=== PATIENT | male | born 1990 | race Caucasian/White ===

== ENCOUNTER → 2016-08-22 | Outpatient (REF) | payer OTHER | LOC: M SMT 08:30 | PROVIDERS: ATTEND Urology | DX: Z30.2 Encounter for sterilization (principal) ==

== ENCOUNTER → 2016-09-13 | Outpatient (REF) | payer OTHER ==
[2016-09-13 16:15] LABS: MEAN CORPUSCULAR HEMOGLOBIN 30.3 pg (27.0-33.0); MEAN CORPUSCULAR HGB CONC 34.1 g/dl (32.0-36.5); RED CELL DISTRIBUTION WIDTH 12.5 % (11.5-14.5); WHITE BLOOD COUNT 6.6 K/mm3 (4.0-10.0)
[2016-09-13 16:51] LABS: ANION GAP 8 MEQ/L (8-16); BLOOD UREA NITROGEN 11 MG/DL (7-18); CALCIUM LEVEL 9.5 MG/DL (8.5-10.1); CARBON DIOXIDE LEVEL 29 MEQ/L (21-32); CHLORIDE LEVEL 105 MEQ/L (98-107); GLOMERULAR FILTRATION RATE > 60.0 (>60); GLUCOSE, FASTING 89 MG/DL (70-105); POTASSIUM SERUM 3.9 MEQ/L (3.5-5.1); SODIUM LEVEL 142 MEQ/L (136-145)
== END ==
LOC: M LABDRAW1 15:25
PROVIDERS: ATTEND Family Medicine
DX: F32.0 Major depressive disorder, single episode, mild (principal); F39 Unspecified mood [affective] disorder

== ENCOUNTER → 2016-09-21 | Outpatient (REF) | payer OTHER ==
[2016-09-21 13:49] LABS: IMMOTILE SPERM ABSENT (ABSENT); MOTILE SPERM ABSENT (ABSENT)
[2016-09-21 13:50] LABS: IMMMOTILE SPERM CENTRIFUGED PRESENT (ABSENT); MOTILE SPERM CENTRIFUGED ABSENT (ABSENT)
[2016-09-21 13:52] LABS: SPERM ABNORMAL FORMS WBC'S NOTED
== END ==
LOC: M SMT 13:31
PROVIDERS: ATTEND Urology
DX: Z30.8 Encounter for other contraceptive management (principal)

== ENCOUNTER → 2016-11-30 | Outpatient (CLI) | payer OTHER ==
--- NOTE | 2016-11-30 12:29 | REP ---
MRI CERVICAL SPINE WITHOUT CONTRAST: 11/30/2016. Comparison: 04/20/2011. Clinical history: Neck pain. Technique: Sagittal T1, T2 and STIR images with axial T1-T2 sequences provided. Findings. The sagittal images show the normal lordosis maintained. Vertebral body heights and marrow signal from the dens to the upper thoracic levels to the mid body of T4 were unremarkable. The vertebral body heights and disc space heights as well as the disc water signal were normal. No prevertebral swelling or malalignment. Cervical cord shows no intrinsic signal abnormality, syrinx, atrophy or mass. Craniocervical junction shows ample subarachnoid space but no cerebellar tonsillar ectopia.. At C2-C3, there is no disc bulge or herniation and no spinal or foraminal stenosis. At C3-4, there is minimal disc bulge not causing any spinal or foraminal stenosis. At C4-5 and C5-6, there is also trace disc bulge without spinal or foraminal stenosis. At C6-7 and C7-T1, there is no disc bulge or herniation and no spinal or foraminal stenosis. Impression: 1. Minimal disc bulges at C3-4 through C5-6 without spinal or foraminal stenosis. These findings are minimal but were not present on the previous study. No spinal stenosis, central canal stenosis, acute disc space abnormality, compression deformity, intrinsic signal abnormality in the cervical cord nor other acute finding. Signed by Danish Catherine MD 11/30/2016 12:31 P
--- NOTE | 2016-11-30 12:59 | REP ---
MRI left shoulder without contrast: History: Pain. Attention to scapula. Pain under shoulder. Comparison MRI is from March 02, 2012. Technique: Axial, coronal and sagittal imaging planes were utilized through the shoulder, scapula and posterolateral chest wall. No infrascapular or scapulothoracic mass lesion or cyst is seen. Cortical and medullary bone signal intensity is normal in the scapula. Medial and lateral scapular borders are intact. There is no evidence of glenohumeral or acromioclavicular joint effusion. Glenohumeral and acromioclavicular joints are normally aligned. No axillary mass or adenopathy is seen. Skeletal muscle signal intensity in the periarticular and chest wall musculature is unremarkable. No rib abnormality is appreciated. Impression: Negative left shoulder and scapular MRI study. Signed by Long Fuentes MD 11/30/2016 01:31 P
== END ==
LOC: M RAD 10:12
PROVIDERS: ATTEND Physical Medicine & Rehabilitation
DX: M65.812 Other synovitis and tenosynovitis, left shoulder (principal); M50.20 Other cervical disc displacement, unspecified cervical region

== ENCOUNTER → 2019-06-18 | Outpatient (REF) | payer OTHER | LOC: M LAB REF 17:21 | PROVIDERS: ATTEND Physician Assistant | DX: J02.9 Acute pharyngitis, unspecified (principal) ==

== ENCOUNTER → 2020-12-22 | Outpatient (CLI) | payer OTHER ==
[2020-12-22 15:02] LABS: BASO % 0.3 % (0.0-1.0); EOS # 0.1 10^3/uL (0.0-0.5); EOS % 2.1 % (0.0-3.0); HEMATOCRIT 45.9 % (42.0-52.0); HEMOGLOBIN 14.7 g/dl (13.5-17.5); LYMPH # 1.4 10^3/uL (1.5-5.0); LYMPH % 22.4 % (24.0-44.0); MEAN CORPUSCULAR HEMOGLOBIN 29.9 pg (27.0-33.0); MEAN CORPUSCULAR VOLUME 93.3 fl (80.0-96.0); MONO # 0.5 10^3/uL (0.0-0.8); MONO % 7.6 % (2.0-8.0); NEUTROPHILS # 4.1 10^3/uL (1.5-8.5); NEUTROPHILS % 67.3 % (36.0-66.0); PLATELET COUNT, AUTOMATED 335 10^3/uL (150-450); RED BLOOD COUNT 4.92 10^6/uL (4.30-6.10); WHITE BLOOD COUNT 6.1 10^3/uL (4.0-10.0)
[2020-12-22 15:41] LABS: ERYTHROCYTE SEDIMENTATION RATE 4 mm/hr (0-15)
[2020-12-22 15:42] LABS: ALT/SGPT 36 U/L (12-78); BILIRUBIN,TOTAL 0.3 MG/DL (0.2-1.0); BLOOD UREA NITROGEN 8 MG/DL (7-18); CALCIUM LEVEL 9.2 MG/DL (8.5-10.1); CARBON DIOXIDE LEVEL 28 MEQ/L (21-32); CHLORIDE LEVEL 106 MEQ/L (98-107); CORTISOL BASELINE 8.2 UG/DL (4.3-22.4); FREE T4 0.76 NG/DL (0.76-1.46); GLOMERULAR FILTRATION RATE > 60.0 (>60); GLUCOSE, FASTING 83 MG/DL (70-100); POTASSIUM SERUM 4.1 MEQ/L (3.5-5.1); SODIUM LEVEL 140 MEQ/L (136-145); THYROID STIMULATING HORMONE 0.454 uIU/ML (0.358-3.740); TOTAL PROTEIN 7.3 GM/DL (6.4-8.2)
[2020-12-22 15:59] LABS: HEMOGLOBIN A1c 5.3 %
[2020-12-23 16:08] LABS: TESTOSTERONE FREE (DIRECT) 12.5 pg/mL (8.7-25.1)
== END ==
LOC: M WUC 10:32
PROVIDERS: ATTEND Clinical Nurse Specialist Family Health
DX: S06.0X0A Concussion without loss of consciousness, initial encounter (principal); R53.83 Other fatigue; G44.321 Chronic post-traumatic headache, intractable

== ENCOUNTER → 2023-12-20 | Outpatient (CLI) | payer OTHER ==
[2023-12-20 11:19] LABS: BASO % 0.2 % (0.0-1.0); EOS # 0.1 10^3/uL (0.0-0.5); HEMATOCRIT 46.5 % (42.0-52.0); HEMOGLOBIN 15.4 g/dl (13.5-17.5); LYMPH # 1.6 10^3/uL (1.5-5.0); LYMPH % 26.4 % (24.0-44.0); MEAN CORPUSCULAR HEMOGLOBIN 30.3 pg (27.0-33.0); MEAN CORPUSCULAR HGB CONC 33.1 g/dl (32.0-36.5); MEAN CORPUSCULAR VOLUME 91.5 fl (80.0-96.0); MONO # 0.5 10^3/uL (0.0-0.8); MONO % 7.8 % (2.0-8.0); NEUTROPHILS % 64.4 % (36.0-66.0); PLATELET COUNT, AUTOMATED 305 10^3/uL (150-450); RED BLOOD COUNT 5.08 10^6/uL (4.30-6.10); WHITE BLOOD COUNT 6.1 10^3/uL (4.0-10.0)
[2023-12-20 11:39] LABS: HEMOGLOBIN A1c 5.3 % (4.0-6.0)
[2023-12-20 11:52] LABS: ALKALINE PHOSPHATASE 62 U/L (46-116); ALT/SGPT 17 U/L (7.0-40); AST/SGOT 11 U/L (<34); BILIRUBIN,TOTAL 0.5 MG/DL (0.3-1.2); BLOOD UREA NITROGEN 12 MG/DL (9-23); CALCIUM LEVEL 9.8 MG/DL (8.5-10.1); CARBON DIOXIDE LEVEL 30 MMOL/L (20-31); CHLORIDE LEVEL 106 MMOL/L (98-107); CHOLESTEROL LEVEL 207 MG/DL (<200); CHOLESTEROL RISK RATIO 5.59 (<5); CREATININE FOR GFR 0.93 MG/DL (0.70-1.30); GLOMERULAR FILTRATION RATE > 60.0 (>60); GLUCOSE, FASTING 87 MG/DL (60-100); LDL CHOLESTEROL 147.6 MG/DL (<100); POTASSIUM SERUM 4.4 MMOL/L (3.5-5.1); SODIUM LEVEL 141 MMOL/L (136-145); TOTAL PROTEIN 6.9 G/DL (5.7-8.2); TRIGLYCERIDES LEVEL 112 MG/DL (<150)
[2023-12-20 11:53] LABS: THYROID STIMULATING HORMONE 0.785 uIU/ML (0.55-4.78)
[2023-12-20 11:54] LABS: FREE T4 0.97 NG/DL (0.89-1.76)
== END ==
LOC: M LAB 09:54
PROVIDERS: ATTEND Physician Assistant
DX: Z13.29 Encounter for screening for other suspected endocrine disorder (principal)

== ENCOUNTER 2024-01-15 17:51 | Emergency (ER) | payer OTHER ==
[~2024-01-15] VITALS: Ht 172.7 cm; Wt 74.7 kg
[2024-01-15 19:59] VITALS: BP 118/82; TEMP 96.7; O2SAT 99
[2024-01-15] MEDS: IBUPROFEN 800 MG TAB PO ONE (20:02)
== END 2024-01-15 20:07 | disposition home or self-care (01) ==
LOC: M ED 17:51
DX: S16.1XXA Strain of muscle, fascia and tendon at neck level, initial encounter (principal); V43.52XA Car driver injured in collision with other type car in traffic accident, initial encounter; Y92.410 Unspecified street and highway as the place of occurrence of the external cause; Y93.9 Activity, unspecified; Y99.9 Unspecified external cause status; Z87.820 Personal history of traumatic brain injury

== ENCOUNTER → 2024-02-26 | Outpatient (CLI) | payer OTHER ==
[2024-02-26 11:55] LABS: BASO % 0.3 % (0.0-1.0); EOS # 0.1 10^3/uL (0.0-0.5); EOS % 1.5 % (0.0-3.0); HEMATOCRIT 45.1 % (42.0-52.0); LYMPH # 1.4 10^3/uL (1.5-5.0); LYMPH % 19.3 % (24.0-44.0); MEAN CORPUSCULAR HEMOGLOBIN 29.9 pg (27.0-33.0); MEAN CORPUSCULAR HGB CONC 33.3 g/dl (32.0-36.5); MEAN CORPUSCULAR VOLUME 89.8 fl (80.0-96.0); MONO # 0.4 10^3/uL (0.0-0.8); NEUTROPHILS # 5.5 10^3/uL (1.5-8.5); NEUTROPHILS % 73.6 % (36.0-66.0); PLATELET COUNT, AUTOMATED 302 10^3/uL (150-450); RED BLOOD COUNT 5.02 10^6/uL (4.30-6.10); WHITE BLOOD COUNT 7.5 10^3/uL (4.0-10.0)
[2024-02-26 12:38] LABS: ALKALINE PHOSPHATASE 63 U/L (46-116); ALT/SGPT 15 U/L (7.0-40); AST/SGOT 9 U/L (<34); BILIRUBIN,TOTAL 0.5 MG/DL (0.3-1.2); BLOOD UREA NITROGEN 11 MG/DL (9-23); CALCIUM LEVEL 9.6 MG/DL (8.5-10.1); CARBON DIOXIDE LEVEL 30 MMOL/L (20-31); CHLORIDE LEVEL 107 MMOL/L (98-107); CHOLESTEROL LEVEL 175 MG/DL (<200); CHOLESTEROL RISK RATIO 5.08 (<5); CREATININE FOR GFR 0.94 MG/DL (0.70-1.30); GLOMERULAR FILTRATION RATE > 60.0 (>60); GLUCOSE, FASTING 84 MG/DL (60-100); HDL CHOLESTEROL 34.4 MG/DL (>40); LDL CHOLESTEROL 100.4 MG/DL (<100); NON-HDL-C 140.6 MG/DL; POTASSIUM SERUM 4.4 MMOL/L (3.5-5.1); SODIUM LEVEL 138 MMOL/L (136-145); TOTAL PROTEIN 6.9 G/DL (5.7-8.2); TRIGLYCERIDES LEVEL 201 MG/DL (<150)
[2024-02-26 13:00] LABS: HEMOGLOBIN A1c 5.5 % (4.0-6.0)
== END ==
LOC: M LAB 11:11
PROVIDERS: ATTEND Physician Assistant
DX: E78.2 Mixed hyperlipidemia (principal); K21.00 Gastro-esophageal reflux disease with esophagitis, without bleeding; Z13.29 Encounter for screening for other suspected endocrine disorder